=== PATIENT | female | born 1975 | race Caucasian/White ===

== ENCOUNTER → 2019-09-15 11:00 | Outpatient (BNVA) | payer OTHER, SELFPAY | PROVIDERS: Family Provider Nurse Practitioner; Visit Provider Nurse Practitioner Family | DX: I10 Essential (primary) hypertension (principal); R07.9 Chest pain, unspecified | CPT/HCPCS: 80053; 80061; 84443; 85025 ==

== ENCOUNTER → 2019-12-13 17:14 | Outpatient (BNVA) | payer OTHER, SELFPAY | PROVIDERS: Family Provider Nurse Practitioner; Visit Provider Nurse Practitioner Family | DX: R50.9 Fever, unspecified (principal); J06.9 Acute upper respiratory infection, unspecified; Z20.818 Contact with and (suspected) exposure to other bacterial communicable diseases | CPT/HCPCS: 87635 ==

== ENCOUNTER → 2020-03-06 17:35 | Outpatient (BNVA) | payer OTHER, SELFPAY | PROVIDERS: Family Provider Nurse Practitioner; Visit Provider Nurse Practitioner Family | DX: R00.2 Palpitations (principal) | CPT/HCPCS: 80053; 82607; 83735; 84443; 85025 ==

== ENCOUNTER 2020-06-10 09:34 | Outpatient (CLI) | payer OTHER, SELFPAY ==
--- NOTE | 2020-06-10 10:15 | USCV_ITS ---
Westley Vidal Age: 45 Gender: F : 1975 Exam Date: 06/10/2020 09:53 Ordering Phys: Kim Langston MD ([email or web address]) Technologist: Katherin Dobson [place]am [place] [facility] [place]: PALPITATIONS BP: 126 / 81 HR: 62 Rhythm: Sinus Technical Quality: Adequate MEASUREMENTS (Male / Female) Normal Values 2D ECHO LV Diastolic Diameter PLAX 3.1 cm 4.2 - 5.9 / 3.9 - 5.3 cm LV Systolic Diameter PLAX 2.2 cm IVS Diastolic Thickness 1.4 cm 0.6 - 1.0 / 0.6 - 0.9 cm IVS Systolic Thickness 1.8 cm LVPW Diastolic Thickness 1.3 cm 0.6 - 1.0 / 0.6 - 0.9 cm LVPW Systolic Thickness 1.6 cm LVOT Diameter 2.0 cm LV Ejection Fraction 2D Teich 57.5 % LV Ejection Fraction MOD 2C 60.8 % LV Ejection Fraction 2C AL 61.5 % LA Diameter 2.8 cm LA Width 3.3 cm LA Height 4.5 cm RA Width 3.2 cm RA Height 4.0 cm Aorta at Sinotubular Diameter 2.2 cm M-MODE LV Diastolic Diameter MM 4.3 cm 4.2 - 5.9 / 3.9 - 5.3 cm LV Systolic Diameter MM 2.8 cm LV Ejection Fraction MM Teich 65.4 % IVS Diastolic Thickness MM 1.1 cm 0.6 - 1.0 / 0.6 - 0.9 cm IVS Systolic Thickness MM 1.6 cm LVPW Diastolic Thickness MM 0.9 cm 0.6 - 1.0 / 0.6 - 0.9 cm LVPW Systolic Thickness MM 1.8 cm Aortic Annulus Diameter 3.2 cm LA Ao Ratio MM 0.9 MV E Point Septal Separation 0.6 cm DOPPLER AV Peak Velocity 124.0 cm/s LVOT Peak Velocity 83.0 cm/s AV Area Cont Eq vti 2.5 cm squared AV Area Cont Eq pk 2.1 cm squared MV Area PHT 4.4 cm squared Mitral E to A Ratio 1.7 MV E' Velocity 58.0 cm/s Mitral E to MV E' Ratio 7.7 Mitral E to LV E' Lateral Ratio 8.0 Mitral E to LV E' Septal Ratio 7.4 TR Peak Velocity 203.0 cm/s TR Peak Gradient 16.5 mmHg Right Atrial Pressure 3.0 mmHg Pulmonary Artery Systolic Pressu 19.5 mmHg PV Peak Velocity 62.0 cm/s RV Acceleration Time 0.1 s RV Ejection Time 0.3 s RV AcT/ET 0.3 FINDINGS Left Ventricle Normal left ventricular cavity size. Normal left ventricular systolic function. No regional wall motion abnormalities. Left ventricular ejection fraction is estimated at 65 %. Normal diastolic function. Right Ventricle The right ventricle is normal in size and function. Right Atrium The right atrium is normal in size. Left Atrium The left atrium is normal in size. Mitral Valve Structurally normal mitral valve without significant stenosis or prolapse. There is no mitral regurgitation. Aortic Valve Structurally normal aortic valve without significant sclerosis or stenosis. There is no aortic regurgitation. Tricuspid Valve Structurally normal tricuspid valve without significant stenosis or regurgitation. Pulmonary artery systolic pressure is normal. Pulmonic Valve Structurally normal pulmonic valve without significant stenosis. There is no pulmonic regurgitation. Pericardium Normal pericardium without effusion. Aorta Normal ascending aorta dimension. CONCLUSIONS 1-Normal left ventricular cavity size. Normal left ventricular systolic function. No regional wall motion abnormalities. Left ventricular ejection fraction is estimated at 65 %. Normal diastolic function. 2-There is no pericardial effusion. 3-No significant valve abnormalities. 4-Pulmonary artery systolic pressure is within normal limits. 5-Right atrial pressure is around 5 mm of mercury. 6-There are no prior echocardiogram studies to compare. Kim Langston MD (Electronically Signed) Final Date: 12 June 2020 18:06 S
== END 2020-06-10 09:35 | disposition home or self-care (01) ==
LOC: RAD 09:36
PROVIDERS: PCP Nurse Practitioner Family; Visit Provider Internal Medicine Cardiovascular Disease
DX: R00.2 Palpitations (principal)
CPT/HCPCS: 93306

== ENCOUNTER → 2020-10-28 09:04 | Outpatient (BNVA) | payer OTHER, SELFPAY | PROVIDERS: PCP Nurse Practitioner Family; Visit Provider Nurse Practitioner Family | DX: I10 Essential (primary) hypertension (principal); R53.83 Other fatigue | CPT/HCPCS: 80053; 80061; 82306; 82607; 83735; 84443; 85025 ==

== ENCOUNTER → 2020-11-05 12:05 | Outpatient (BNVA) | payer OTHER, SELFPAY | PROVIDERS: PCP Nurse Practitioner Family; Visit Provider Nurse Practitioner Family | DX: R19.7 Diarrhea, unspecified (principal) | CPT/HCPCS: 83630; 87493; 87506 ==

== ENCOUNTER → 2021-09-03 10:57 | Outpatient (BNVA) | payer OTHER, SELFPAY | PROVIDERS: PCP Nurse Practitioner Family; Visit Provider Family Medicine | DX: M25.519 Pain in unspecified shoulder (principal); M25.511 Pain in right shoulder; G89.29 Other chronic pain | CPT/HCPCS: 73030 ==

== ENCOUNTER 2021-10-14 15:33 | Outpatient (CLI) | payer OTHER, SELFPAY ==
--- NOTE | 2021-10-14 16:00 | MR_ITS ---
WS: [id number] MRI RIGHT SHOULDER NONCONTRAST TECHNIQUE: Sagittal T2, coronal T1, T2 and proton density imaging. Axial gradient PDE imaging. CLINICAL INFORMATION: M25.519 - Pain in unspecified shoulder COMPARISON: MRI 1 FINDINGS: Moderate degenerative arthritis AC joint with mild downsloping of the acromion. Edema and fluid at th e AC joint progressed compared to previous. Incidental enchondroma proximal RIGHT humeral shaft. Dist al supraspinatus is intact with chronic thinning and mild tendinopathy.. Normal infraspinatus. Normal teres minor. Normal subscapularis. Biceps tendon is intact within the bicipital groove. Degenerative narrowing glenohumeral joint. Brandi l biceps labral anchor. Intra-articular biceps tendon is intact. Normal bone marrow signal in the hum erus and glenoid. Mild degenerative fraying of the glenoid labrum. Impression MR/MR shoulder RT wo con* [id number] IMPRESSION: 1. Moderate degenerative arthritis AC joint with mild edema and moderate downs loping acromion. Slight subacromial spurring. This is progressed compared to 23 12. 2. Mild chronic thinning of the supraspinatus distally has progressed compared to 2009. Mild tendinopathy in the distal supraspinatus. 3. Rotator cuff is intact. No high-grade tears. 4. Normal biceps tendon within the bicipital groove. Normal biceps labral anch or. 5. No other significant findings.
== END 2021-10-14 15:34 | disposition home or self-care (01) ==
LOC: RAD 15:34
PROVIDERS: PCP Nurse Practitioner Family; Visit Provider Family Medicine
DX: M25.511 Pain in right shoulder (principal)
CPT/HCPCS: 73221

== ENCOUNTER 2022-07-13 07:37 | Outpatient (CLI) | payer OTHER, SELFPAY ==
--- NOTE | 2022-07-13 08:00 | NM_ITS ---
WS: [id number] NUCLEAR MEDICINE HIDA SCAN CLINICAL INFORMATION: R10.11 - Right upper quadrant pain TECHNIQUE: Following intravenous administration of 7.8 mCi of technetium 99m mebrofenin, images of th e abdomen were obtained over the course of 60 minutes. Next, gallbladder ejection fraction was determ ined by obtaining preprandial and one-hour postprandial images of the gallbladder following oral kaiden stion of Ensure. COMPARISON: None. FINDINGS: Normal hepatic uptake at 5 minutes. Normal hepatic excretion. Gallbladder is visualized by 10 minutes . No evidence of acute cholecystitis. Normal common bile duct and small bowel activity. Gallbladder ejection fraction 65% within normal limits. No evidence of chronic cholecystitis. NM/NM hepatobiliary w phar* [id number] IMPRESSION: 1. No evidence of acute or chronic cholecystitis. 2. Gallbladder ejection fraction 65% within normal limits. 3. Normal hepatic uptake and hepatic excretion.
== END 2022-07-13 07:38 | disposition home or self-care (01) ==
LOC: RAD 07:39
PROVIDERS: PCP Nurse Practitioner Family; Visit Provider Nurse Practitioner Family
DX: R10.11 Right upper quadrant pain (principal)
CPT/HCPCS: 78227; A9537

== ENCOUNTER → 2023-02-18 13:03 | Outpatient (BNVA) | payer OTHER, SELFPAY | PROVIDERS: PCP Nurse Practitioner Family; Visit Provider Nurse Practitioner Family | DX: I10 Essential (primary) hypertension (principal); R53.83 Other fatigue | CPT/HCPCS: 80053; 80061; 82306; 82607; 83735; 84443; 85025 ==

== ENCOUNTER 2023-10-21 08:41 | Day surgery (SDC) | payer OTHER, SELFPAY ==
[2023-10-21 08:56] VITALS: BP 126/76; PULSE 80; RESP 18; TEMP 37.2; O2SAT 97
--- NOTE | 2023-10-21 09:00 | W.PM.OPSFHP ---
Same Day Surgery H&P Indication for Procedure/HPI DATE OF PROCEDURE: October 21, 2023 CHIEF COMPLAINT/INDICATIONFOR SURGICAL PROCEDURE: need for screening colonoscopy PREOP DIAGNOSIS: need for screening colonoscopy PLANNED PROCEDURE: Operation Date: 10/21/23 10:20 Proposed Procedures p Colonoscopy 27730, G0121, Z12.11(Not Applicable) - Israel Coulter MD Medications/Allergies* Home Medications Medication Instructions Recorded Confirmed Type ibuprofen 800 mg tablet 800 mg PO TID PRN Pain (Scale 01/07/23 10/19/23 History Score 4-6) Allergies/Adverse Reactions Allergy/AdvReac Type Severity Reaction Status Date / Time cephalexin [From Keflex] Allergy Unknown Verified 10/19/23 12:43 Penicillins Allergy ALGY-Rash Verified 10/19/23 12:43 Pertinent History/Comorbid Conditions* Medical History (Updated 06/26/22 @ 16:54 by DONALDO Castaneda) Palpitation Surgical History (Updated 12/03/21 @ 10:43 by Dejah Moran MD) History of partial hysterectomy Family History (Updated 09/15/19 @ 16:00 by Marleni Obrien LPN, RT) Diabetes Family/Other Hypertension Family/Other Social History Smoking and tobacco/nicotine status: never used tobacco/nicotine Quit status (tobacco/nicotine): has quit using Year quit tobacco: 2000 Second hand smoke exposure: No Alcohol intake: never Substance/Drug Use: never Adopted: No Caregiver/support person: Yes Lives independently: Yes Household members: spouse and children Marital status: service: No Current occupational status: employed Current occupation: [employer] Current gender identity: Female Special maren needs: No Pertinent Exam Findings alert, oriented x 3, clear to auscultation bilaterally and procedure specific exam findings Recommendations Surgery/Procedure today Coding Level of Care Code Acute Code for Chg Fwd
--- NOTE | 2023-10-21 09:15 | ANES.PREANE2 ---
Pre-Anesthetic Assessment Height/Weight: Height 1.6 m Weight 85.275 kg Temp Pulse Resp BP Pulse Ox O2 Del Method 98.9 F 80 18 126/76 97 Room Air 10/21/23 08:56 10/21/23 08:56 10/21/23 08:56 10/21/23 08:56 10/21/23 08:56 10/21/23 08:56 Preop Diagnosis: need for screening colonoscopy Operation Date: 10/21/23 10:20 Proposed Procedures p Colonoscopy 64648, G0121, Z12.11(Not Applicable) - Israel Coulter MD Familial anesthetic complications: post op nausea Was Beta Sobeida taken within 24 hours: Yes Was Clonidine taken within 24 hours: N/A Last intake: Intake Last Liquid Date 10/20/23 Last Liquid Time 23:40 Last Solid Date 10/19/23 Last Solid Time 18:00 Social Alcohol (ocassional) and No tobacco Exam alert, oriented x 3, clear to auscultation bilaterally and regular rate & rhythm Airway Submandibular: within normal limits Cervical ROM: within normal limits Mallampati: Class II Dentition: full Pulmonary Asthma CV/HEM Arrythmia and Hypertension palpitations following covid 2020 None reported Hepatic None reported GI None reported Metabolic None reported Musc/skel None reported Neuropsych Headache and Seizure (2001 was last event) Anesthetic Plan ASA status: 2 Anesthesia: MAC Medications/Allergies Home Medications Medication Instructions Recorded Confirmed Last Taken Type albuterol sulfate 90 mcg/actuation 2 puff inhalation QID PRN 12/19/21 10/19/23 10/20/23 Rx aerosol inhaler (ProAir HFA) shortness of breath or wheezing #8.5 grams ibuprofen 800 mg tablet 800 mg PO TID PRN Pain (Scale 01/07/23 10/19/23 10/20/23 History Score 4-6) hyoscyamine sulfate 0.375 mg 0.375 mg PO Q12H #180 tabs 01/21/23 10/19/23 10/20/23 Rx tablet,extended release,12 hr lisinopril 10 mg tablet 10 mg PO DAILY #90 tabs 09/28/23 10/19/23 10/20/23 Rx metoprolol succinate 25 mg 12.5 mg (1/2 x 25 mg) PO DAILY #45 09/28/23 10/19/23 10/20/23 Rx tablet,extended release 24 hr tabs Allergies Allergy/AdvReac Type Severity Reaction Status Date / Time cephalexin [From Keflex] Allergy Unknown Verified 10/19/23 12:43 Penicillins Allergy ALGY-Rash Verified 10/19/23 12:43 [facility] Anesthesia Medical History Palpitation Surgical History History of partial hysterectomy Family History Family/Other Hypertension Diabetes Social History Smoking and tobacco/nicotine status: never used tobacco/nicotine Quit status (tobacco/nicotine): has quit using Year quit tobacco: 2000 Second hand smoke exposure: No Alcohol intake: never Substance/Drug Use: never Adopted: No Caregiver/support person: Yes Lives independently: Yes Household members: spouse and children Marital status: service: No Current occupational status: employed Current occupation: [employer] Current gender identity: Female Special maren needs: No Data Anesthesia Cardiac Studies: Echocardiogram Ultrasound 06/10/20
[2023-10-21] MEDS: sodium chloride 0.9% 1,000 ML 30 ML IV (09:27)
[2023-10-21 10:13] VITALS: BP 99/62; PULSE 78; RESP 16; TEMP 36.8; O2SAT 95
[2023-10-21 10:18] VITALS: BP 115/97; PULSE 81; RESP 18; O2SAT 99
[2023-10-21 10:28] VITALS: BP 133/89; PULSE 69; RESP 18; O2SAT 100
--- NOTE | 2023-10-21 10:45 | ANE.PACU2 ---
Inpatient post-anesthesia follow up: Airway intact: Yes Vital signs: Temperature 98.3 F Pulse Rate 69 Respiratory Rate 18 Blood Pressure 133/89 Pulse Oximetry 100 Oxygen Delivery Me thod Room Air Oxygen Flow Rate Fraction of Inspir ed Oxygen Hydration adequate: Yes Nausea and vomiting: No Pain level: 1 Mental status: Baseline
== END 2023-10-21 10:45 | disposition home or self-care (01) ==
PROVIDERS: PCP Nurse Practitioner Family; Visit Provider Surgery
PROC: 0DJD8ZZ Inspection of Lower Intestinal Tract, Via Natural or Artificial Opening Endoscopic (ICD-10-PCS; CPT 45378; principal; 2023-10-21 10:20)
DX: Z12.11 Encounter for screening for malignant neoplasm of colon (principal); Z87.891 Personal history of nicotine dependence
CPT/HCPCS: 45378; J2704; J7030

== ENCOUNTER → 2024-09-05 08:48 | Outpatient (BNVA) | payer OTHER, SELFPAY | PROVIDERS: PCP Nurse Practitioner Family; Visit Provider Nurse Practitioner Family | DX: I10 Essential (primary) hypertension (principal) | CPT/HCPCS: 80053; 80061; 84443; 85025 ==

== ENCOUNTER 2024-09-21 08:26 | Outpatient (CLI) | payer OTHER, SELFPAY ==
--- NOTE | 2024-09-21 08:30 | US_ITS ---
WS: [id number] RIGHT UPPER QUADRANT ULTRASOUND HISTORY: R10.11 - Right upper quadrant pain COMPARISON: None available. Liver: 14.9 cm in length. Normal size liver and echogenicity. No bile duct dilatation or mass. Portal Vein: Normal hepatopetal flow with monophasic waveform. Gallbladder: Gallbladder is slightly contracted. No stones are identified. No wall thickening or pericholecystic fluid. CBD: 0.4 cm Pancreas: Not visualized. Right kidney: 10.0 cm in length. Normal size and echogenicity. No hydronephrosis or mass. Aorta and IVC: Limited. No ascites. US/US gall bladder [id number] IMPRESSION: 1. Gallbladder is slightly contracted. No stones identified or evidence for ac joe cholecystitis. 2. No hepatobiliary duct dilatation.
== END 2024-09-21 08:27 | disposition home or self-care (01) ==
LOC: RAD 08:26
PROVIDERS: PCP Nurse Practitioner Family; Visit Provider Nurse Practitioner Family
DX: R10.11 Right upper quadrant pain (principal)
CPT/HCPCS: 76705